=== PATIENT | male | born 1995 | race Caucasian/White ===

== ENCOUNTER 2018-11-29 17:35 | Emergency (ER) | payer OTHER ==
[~2018-11-29] VITALS: Ht 167.6 cm; Wt 77.3 kg
[2018-11-29] MEDS ORDERED: IBUPROFEN 800 MG TABLET PO ONE (20:15)
[2018-11-29 20:45] VITALS: BP 118/63
== END 2018-11-29 20:51 | disposition home or self-care (01) ==
LOC: EMS 17:35
DX: S62.001A Unspecified fracture of navicular [scaphoid] bone of right wrist, initial encounter for closed fracture (principal); F17.210 Nicotine dependence, cigarettes, uncomplicated; V00.311A Fall from snowboard, initial encounter; Y93.23 Activity, snow (alpine) (downhill) skiing, snowboarding, sledding, tobogganing and snow tubing; Y92.89 Other specified places as the place of occurrence of the external cause; Y99.8 Other external cause status